=== PATIENT | male | born 1985 | race Caucasian/White ===

== ENCOUNTER 2022-08-07 10:11 | Emergency (ER) | payer BC ==
[~2022-08-07] VITALS: Ht 172.7 cm; Wt 77.1 kg
--- NOTE | 2022-08-07 10:29 | NUR ---
at bedside for evaluation.
[2022-08-07] MEDS ORDERED: hydrALAZINE HCL 20 MG/1 ML VIAL ONE (10:58)
[2022-08-07] MEDS ORDERED: hydrALAZINE HCL 20 MG/1 ML VIAL IV ONE (11:00)
[2022-08-07 11:03] LABS: HEMATOCRIT 41.5 % (36.7-47.1); MEAN CORPUSCULAR HEMOGLOBIN 30.8 uug (23.8-33.4); MEAN CORPUSCULAR VOLUME 89.8 fL (73.0-96.2); PLATELET COUNT (AUTO) 240 K/uL (152-348)
[2022-08-07 11:07] LABS: CREATININE 0.9 mg/dL (0.6-1.3); POTASSIUM 3.6 mmol/L (3.5-5.1)
--- NOTE | 2022-08-07 11:09 | NUR ---
Started IV 20g left AC/FA
[2022-08-07 11:22] LABS: MAGNESIUM 1.7 mg/dL (1.8-2.4)
[2022-08-07] MEDS ORDERED: MAGNESIUM SULFATE/D5W 100 ML IV SCH (11:30)
[2022-08-07] MEDS ORDERED: MAGNESIUM SULFATE/D5W 100 ML ONE ×2 (11:33→12:31)
[2022-08-07] MEDS ORDERED: LORAZEPAM 1 MG TABLET ONE (12:06)
[2022-08-07] MEDS ORDERED: LORAZEPAM 0.5 MG TABLET PO ONE (12:15)
--- NOTE | 2022-08-07 12:17 | NUR ---
Gave pt lunch tray.
--- NOTE | 2022-08-07 12:34 | NUR ---
started second bag of Magnesium
--- NOTE | 2022-08-07 13:10 | NUR ---
Pt more calm now.
--- NOTE | 2022-08-07 13:40 | NUR ---
finished infusion of Magnesium.
--- NOTE | 2022-08-07 13:46 | NUR ---
Removed IV intact, site okay, bandaged. Pt given d/c instructions, pt verbalized understanding.
[2022-08-07 14:02] VITALS: BP 144/83
== END 2022-08-07 14:04 | disposition home or self-care (01) ==
LOC: ER 10:11
DX: R00.2 Palpitations (principal); R07.9 Chest pain, unspecified; R55 Syncope and collapse; R42 Dizziness and giddiness; I10 Essential (primary) hypertension
CPT/HCPCS: 99285; 96365; 71045; 96366; 96375; 80048; 83735; 84443; 85025; 84484; 36415; 93005; J0360; J3475 ×2; A4663

== ENCOUNTER 2022-09-11 11:57 | Emergency (ER) | payer BC ==
[~2022-09-11] VITALS: Ht 172.7 cm; Wt 83.0 kg
--- NOTE | 2022-09-11 12:13 | NUR ---
Patient walked into the ER complaining of difficulty breathing and with on and off palpitations. Seen by
[2022-09-11] MEDS ORDERED: LORAZEPAM 0.5 MG TABLET PO ONE (12:30)
[2022-09-11] MEDS ORDERED: LORAZEPAM 0.5 MG TABLET ONE (12:30)
--- NOTE | 2022-09-11 12:43 | NUR ---
EKG, saline lock, and hooked patient on the monitor done as ordered.
--- NOTE | 2022-09-11 12:50 | NUR ---
Portable xray and labs done as ordered, awaiting results.
[2022-09-11 12:57] LABS: HEMATOCRIT 41.4 % (36.7-47.1); MEAN CORPUSCULAR HEMOGLOBIN 30.8 uug (23.8-33.4); MEAN CORPUSCULAR VOLUME 89.4 fL (73.0-96.2); PLATELET COUNT (AUTO) 267 K/uL (152-348)
[2022-09-11 13:07] LABS: CARBON DIOXIDE 26 mmol/L (21-32); CHLORIDE 100 mmol/L (98-107); CREATININE 0.8 mg/dL (0.6-1.3); GLUCOSE 110 mg/dL (74-106); POTASSIUM 3.6 mmol/L (3.5-5.1); UREA NITROGEN, BLOOD 15 mg/dL (7-18)
--- NOTE | 2022-09-11 13:41 | NUR ---
Patient discharged to home in stable condition. Written and verbal after care instructions given. Patient verbalizes understanding of instructions. Stressed follow up or return to ER for worsening s/s.
[2022-09-11 13:42] VITALS: BP 107/60
== END 2022-09-11 13:42 | disposition home or self-care (01) ==
LOC: ER 11:57
DX: F41.9 Anxiety disorder, unspecified (principal); R00.2 Palpitations; R06.02 Shortness of breath; I10 Essential (primary) hypertension
CPT/HCPCS: 36415; 71045; 84443; 84484; 85025; 93005; A4663; J7040